=== PATIENT | male | born 1985 | race Hispanic/Latino ===

== ENCOUNTER 2021-05-24 22:22 | Emergency (ER) | payer OTHER | END 2021-05-25 00:51 | disposition left against medical advice (07) | LOC: CSHERS 22:22 | DX: Z53.21 Procedure and treatment not carried out due to patient leaving prior to being seen by health care provider (principal) ==

== ENCOUNTER 2021-06-03 22:00 | Emergency (ER) | payer OTHER ==
[2021-06-04] MEDS ORDERED: Mag-Al Plus 1200 MG/1200 MG/120 MG/30 ML UDCUP ONE (00:50)
[2021-06-04] MEDS ORDERED: Lidocaine Viscous Sol 2% 15 ml UD Cup ONE (00:51)
== END 2021-06-04 01:00 | disposition home or self-care (01) ==
LOC: CSHERS 22:00
DX: F41.9 Anxiety disorder, unspecified (principal); R06.02 Shortness of breath
CPT/HCPCS: 71045; 84484; 93005